=== PATIENT | male | born 1960 | race Caucasian/White ===

== ENCOUNTER 2023-12-09 15:27 | Inpatient (IN) | payer OTHER ==
[~2023-12-09] VITALS: Ht 182.9 cm; Wt 54.5 kg
[2023-12-09] VITALS (9 sets, daily range): BP systolic 131–156; BP diastolic 76–95; PULSE 69–81; RESP 13–18; TEMP 97.7–97.9; O2SAT 99
[2023-12-09 16:55] LABS: BASOPHILS % (AUTO) 1.2 % (0-1); EOSINOPHILS # (AUTO) 0.1 X10'3 (0-0.9); LYMPHOCYTES % (AUTO) 49.8 % (21-51); MEAN CORPUSCULAR HEMOGLOBIN 28.5 PG (27.0-31.0); MEAN PLATELET VOLUME 8.4 FL (7.4-10.4); MONOCYTES # (AUTO) 0.1 X10'3 (0-0.9); MONOCYTES % (AUTO) 6.8 % (2-12); NEUTROPHILS # (AUTO) 0.8 X10'3 (1.8-7.7); NEUTROPHILS % (AUTO) 38.2 % (42-75); PLATELET COUNT 100 X10'3 (140-440); RED BLOOD COUNT 2.21 X10'6 (4.70-6.10); RED CELL DISTRIBUTION WIDTH 23.6 % (11.5-14.5); WHITE BLOOD COUNT 2.1 X10'3 (4.5-11.0)
[2023-12-09 16:57] LABS: HEMATOCRIT 20.3 % (42.0-52.0); HEMOGLOBIN 6.3 g/dl (14.0-17.9)
[2023-12-09 17:11] LABS: ALANINE AMINOTRANSFERASE 67 U/L (12-78); ALBUMIN 3.4 G/DL (3.4-5.0); ALBUMIN/GLOBULIN RATIO 1.2 (1.1-1.5); ALKALINE PHOSPHATASE 89 IU/L (46-116); ANION GAP 7 (8-16); ASPARTATE AMINO TRANSFERASE 95 U/L (10-37); BILIRUBIN,TOTAL 3.7 MG/DL (0.1-1.0); BLOOD UREA NITROGEN 12 MG/DL (7-18); BUN/CREATININE RATIO 19.7 (10.0-20.0); CHLORIDE 108 MMOL/L (99-107); CREATININE 0.61 MG/DL (0.60-1.10); GLUCOSE 82 MG/DL (70-104); POTASSIUM 3.3 MMOL/L (3.5-5.1); SODIUM 144 MMOL/L (135-145); TOTAL CARBON DIOXIDE 29.5 MMOL/L (24-32); TOTAL PROTEIN 6.2 G/DL (6.4-8.2); eCRCL 96 ML/MIN; eGFR > 90 ML/MIN
[2023-12-09 17:13] LABS: ANISOCYTOSIS 3+; MAGNESIUM 1.8 MG/DL (1.5-2.4); NUCLEATED RED BLOOD CELLS 4 /100WBC (0-0); PLATELET ESTIMATE DECREASED; TOTAL CELLS COUNTED 100
[2023-12-09 17:14] LABS: ETHANOL 345 MG/DL (<10); HYPOCHROMASIA 3+; POLYCHROMASIA 1+
[2023-12-09 17:15] LABS: TARGET CELLS FEW
[2023-12-09 17:16] LABS: ELLIPTOCYTES FEW; LARGE PLATELETS FEW; SCHISTOCYTES FEW; TEAR DROP CELLS 1+
[2023-12-09 17:17] LABS: ACETAMINOPHEN < 2.0 UG/ML (10-30)
[2023-12-09] MEDS: normal saline 1000ML IV soln IV ONE (17:59)
[2023-12-09 18:28] LABS: APTT 26 SECONDS (22-32); INR 1.2 INR; PROTHROMBIN TIME 12.3 SECONDS (9.0-12.0)
[2023-12-09 19:20] LABS: OCCULT BLOOD STOOL NEGATIVE (Neg)
[2023-12-09] MEDS ORDERED: ASPI-130 PO (19:36)
[2023-12-09 19:39] LABS: BILIRUBIN,URINE NEGATIVE (Neg); CLARITY,URINE CLEAR (Clear); COLOR,URINE YELLOW (Yellow); GLUCOSE, URINE NEGATIVE (Neg); KETONES,URINE NEGATIVE (Neg); LEUKOCYTE ESTERASE ,URINE NEGATIVE (Neg); NITRITES, URINE NEGATIVE (Neg); OCCULT BLOOD,URINE NEGATIVE (Neg); PROTEIN,URINE NEGATIVE (Neg)
[2023-12-09 19:43] LABS: UA COLLECTION TYPE VOIDED
[2023-12-09 20:04] LABS: URINE AMPHETAMINE SCREEN NEGATIVE (Neg); URINE BARBITUATE SCREEN NEGATIVE (Neg); URINE BENZODIAZEPINES SCREEN NEGATIVE (Neg); URINE CANNABINOID SCREEN NEGATIVE (Neg); URINE COCAINE SCREEN NEGATIVE (Neg); URINE METHADONE SCREEN NEGATIVE (Neg); URINE OPIATE SCREEN NEGATIVE (Neg); URINE PHENCYCLIDINE SCREEN NEGATIVE (Neg)
[2023-12-09] MEDS ORDERED: magnesium hydroxide 30ml (MOM) UD suspension PO PRN (21:20)
[2023-12-09] MEDS ORDERED: acetaminophen 325mg tablet PO PRN (21:20)
[2023-12-09] MEDS ORDERED: mag hydrox/Alum hydrox/simeth 30ml oral suspension PO PRN (21:20)
[2023-12-09] MEDS ORDERED: HYDROmorphone/PF 0.2 MG/ML SYRINGE IV PRN (21:20)
[2023-12-09] MEDS ORDERED: normal saline 1000ml 1,000 ML IV SCH (21:20)
[2023-12-09] MEDS ORDERED: magnesium Cl slow-release 64mg tablet PO PRN (21:20)
[2023-12-09] MEDS ORDERED: ondansetron/PF 4mg/2ml inj IV PRN (21:20)
[2023-12-09] MEDS ORDERED: potassium Cl 20 mEq SR tablet PO PRN ×2 (21:20)
[2023-12-09] MEDS ORDERED: magnesium sulf-water 4G/100mL 100 ML IV PRN (21:20)
[2023-12-09] MEDS ORDERED: potassium Cl 40MEQ/1/2NS 520ml 520 ML IV PRN (21:20)
[2023-12-09] MEDS ORDERED: magnesium sulf-water 2g/50mL 50 ML IV PRN (21:20)
[2023-12-09] MEDS ORDERED: morphine 2 MG/ML inj. syringe IV PRN ×2 (21:20)
[2023-12-09] MEDS ORDERED: LORazepam 2 mg/ml vial IV PRN (21:35)
[2023-12-09] MEDS ORDERED: dextrose 50%-water 50ml dispensing syringe IV PRN (21:35)
[2023-12-09] MEDS ORDERED: haloperidol lactate 5mg/ml inj IM PRN (21:35)
[2023-12-09] MEDS: PERFLUTREN PROTEIN-A MICROSPHR (Optison) 0.22 MG/ML 3ML VIAL IV ONE (21:49)
[2023-12-09 22:11] LABS: % IRON SATURATION 95 % (11-46); IRON 222 UG/DL (53-167); TOTAL IRON BINDING CAPACITY 233 UG/DL (259-388)
[2023-12-10] MEDS ORDERED: multivitamins, therapeutics tablet PO SCH (08:00)
[2023-12-10] MEDS ORDERED: thiamine 100mg/ml 2ml inj. IV SCH (08:00)
[2023-12-10] MEDS ORDERED: folic acid 1mg/0.2ml inj IV SCH (08:00)
[2023-12-10] MEDS ORDERED: docusate sod 100mg capsule PO SCH (08:00)
[2023-12-10] MEDS ORDERED: K and/or MAG REPLACEMENT MC SCH (08:00)
[2023-12-12 08:54] LABS: TRANSFERRIN 205 mg/dL (177-329)
[2023-12-14] MEDS ORDERED: thiamine 100mg tablet PO SCH (08:00)
== END 2023-12-09 22:29 | disposition left against medical advice (07) | DRG 812 ==
LOC: ER 15:28 → ED HOLD 21:28
PROVIDERS: ADMIT Surgery Surgical Critical Care; ATTEND Surgery Surgical Critical Care
PROC: 30233N1 Transfusion of Nonautologous Red Blood Cells into Peripheral Vein, Percutaneous Approach (ICD-10-PCS; principal; 2023-12-09)
DX: D64.89 Other specified anemias (principal); F10.229 Alcohol dependence with intoxication, unspecified; Z53.21 Procedure and treatment not carried out due to patient leaving prior to being seen by health care provider
CPT/HCPCS: 36415; 36430; 70450; 72125; 73564; 80053; 80305; 80320; 80329; 81003; 82272; 82607; 82728; 83036; 83540; 83550; 83735; 84466; 85007; 85025; 85610; 85730; 86885; 86900; 86901; 86920; 96360; 96361; 99291; G0378; J7030; J7040; P9016